=== PATIENT | female | born 1985 | race Two or more races ===

== ENCOUNTER 2021-02-22 14:49 | Emergency (ER) | payer OTHER ==
[~2021-02-22] VITALS: Ht 157.5 cm; Wt 74.4 kg
[2021-02-22] MEDS ORDERED: SINGULAIR 5MG5 MG PO ×2 (15:09→15:10)
[2021-02-22] MEDS ORDERED: INTESTINEX680 M2 PO (19:12)
[2021-02-22] MEDS ORDERED: PEPCID AC20 MG PO (19:12)
[2021-02-22] MEDS ORDERED: ONDANSETRON HCL4 MG PO (19:12)
[2021-02-22] MEDS ORDERED: CIPRO500 MG PO (19:13)
== END 2021-02-22 19:36 | disposition home or self-care (01) ==
LOC: ER 14:49
DX: B34.9 Viral infection, unspecified (principal); A05.8 Other specified bacterial foodborne intoxications